=== PATIENT | female | born 1970 | race Caucasian/White ===

== ENCOUNTER → 2017-07-16 | Outpatient (CLI) | payer MEDICAID ==
[~2017-07-16] MED LIST: AMOXICILLIN500 M2 PO; ATORVASTATIN CA40 MG PO; AUGMENTIN 875-1 EACH PO; CARAFATE 1GM TAB1 GM PO; CARVEDILOL3.125 M1 PO; CLOPIDOGREL75 M2 PO; COZAAR50 MG PO; ETODOLAC400 MG PO; FIORICET1 CAP PO; GABAPENTIN300 M1 PO; GLYBURIDE 5MG TA5 MG PO; HUMALOG100 U/ML SC; HUMULIN 70100 UNITS/ SC; HYDROCODONE1 TABLET PO; ISOSORBIDE MONO30 MG PO; KEFLEX 500MG.500 MG PO; LANTUS INS100 UNITS/ SC; LISINOPRIL2.5 M1 PO; LORTAB 7.5/3251 TAB PO; METFORMIN HYDR500 M1 PO; METFORMIN500 MG PO; NEURONTIN100 MG OR; OMEPRAZOLE20 MG PO; PREDNISONE 20MG20 MG PO; PRILOSEC20 M1 PO; VICODIN 5/500 T1 TAB PO; ZITHROMAX Z PA250 MG PO
--- NOTE | 2017-07-16 16:55 | RADIOLOGY REPORT PS360 ---
DIG MAMM-SCREEN JANETH W/CAD CAD Screening ORDERING PHYSICIAN : DIRK CABEZAS APRN PATIENT AGE: 46 years GENDER: Female COMPARISON: Previous mammograms: Baseline mammogram with no previous for comparison INDICATION: Routine screening 46-year-old . Mirana. -control Family history. Paternal grandmother with breast cancer age 70 TECHNIQUE: Standard CC and MLO images were obtained. R2 CAD reviewed. FINDINGS: Baseline study with no previous for comparison. Low-density breast bilaterally with no dominant mass nor suspicious calcifications either breast. RIGHT BREAST: No areas of significant concern 2 small punctate calcifications in the medial right breast-most likely DErmal LEFT BREAST: No areas significant concern 3 tiny calcifications at the inferior mammary fold left breast are most likely dermal.. Follow-up one year suggested IMPRESSION: Baseline mammogram. No areas of significant concern Most likely benign tiny dermal calcifications bilaterally-can be followed safely Follow-up in one year recommended BI-RADS CATEGORY: 2_Benign RECOMMENDED FOLLOWUP: 12M 12 MONTH FOLLOW-UP (A letter has been sent to the patient regarding results of the study.)
== END ==
LOC: RAD 06-23 10:00
DX: Z12.31 Encounter for screening mammogram for malignant neoplasm of breast (principal)
CPT/HCPCS: G0202